=== PATIENT | male | born 1995 | race Caucasian/White ===

== ENCOUNTER 2021-09-30 10:51 | Emergency (ER) | payer OTHER ==
[2021-09-30] MEDS ORDERED: Sodium Chloride 0.9% 10 ML Syringe FLUSH PRN (10:58)
[2021-09-30] MEDS ORDERED: Sodium Chloride 0.9% 1,000 ML IV ONE (10:59)
[2021-09-30] MEDS ORDERED: Hydrocortisone Sodium Succinate 100 MG/2 ML SDV IVPUSH ONE (10:59)
[2021-09-30] MEDS ORDERED: Ondansetron 4 MG/2 ML SDV IVPUSH ONE (10:59)
[2021-09-30] MEDS ORDERED: Ibuprofen 400 MG Tab PO ONE (11:57)
== END 2021-09-30 13:52 | disposition home or self-care (01) ==
LOC: JP.ED 10:51
DX: E27.1 Primary adrenocortical insufficiency (principal); R51.9 Headache, unspecified; R11.2 Nausea with vomiting, unspecified; R53.1 Weakness; Z88.1 Allergy status to other antibiotic agents; Z20.822 Contact with and (suspected) exposure to COVID-19
CPT/HCPCS: 36415; 80048; 85025; 87635; 96361; 96374; 96375; 99284; J1720; J2405; J7030; 99282; U0002